=== PATIENT | female | born 1990 | race Two or more races ===

== ENCOUNTER 2024-12-25 12:49 | Observation (INO) | payer MEDICAID, SELFPAY ==
[2024-12-25 12:55] VITALS: BP 123/75; PULSE 90
[2024-12-25 13:11] VITALS: RESP 16; TEMP 36.9; O2SAT 100; BMI 32.6
[2024-12-25 13:19] LABS: ROM Kit Lot # 57809118; Swb Mxed in Solvent 1 min? Yes
[2024-12-25 13:20] LABS: ROM Swab Mixed By: HILEL
[2024-12-25 13:27] LABS: Rupture of Fetal Membranes Negative (Negative)
[2024-12-25 13:29] VITALS: BP 115/64; PULSE 90
[2024-12-25 14:05] VITALS: BP 99/65; PULSE 85
== END 2024-12-25 14:20 | disposition home or self-care (01) ==
PROVIDERS: Admitting Provider Obstetrics & Gynecology; PCP Family Medicine; Visit Provider Obstetrics & Gynecology
DX: Z34.83 Encounter for supervision of other normal pregnancy, third trimester (principal); Z3A.38 38 weeks gestation of pregnancy
CPT/HCPCS: 59025; 59899; 84112

== ENCOUNTER 2024-12-27 10:00 | Inpatient (IN) | payer MEDICAID, SELFPAY ==
[2024-12-27] VITALS (120 sets, daily range): BP systolic 117–148; BP diastolic 58–89; PULSE 65–114; RESP 18–98; TEMP 36.3–37.1; O2SAT 47–100; BMI 32.5
[2024-12-27 11:26] LABS: ROM Kit Lot # 57809118; ROM Swab Mixed By: YOUNB; Swb Mxed in Solvent 1 min? Yes
[2024-12-27 11:27] LABS: Rupture of Fetal Membranes Positive (Negative)
[2024-12-27 12:46] LABS: Basophils # (Auto) 0.1 Thou/mm3 (0.0-0.2); Basophils % (Auto) 1 % (0-2.5); Eosinophils # (Auto) 0.2 Thou/mm3 (0.0-0.5); Eosinophils % (Auto) 1 % (0-10); Hematocrit 36.3 % (36.0-46.0); Immature Granulocytes % (Auto) 1 % (0-0); Immature Granulocytes Auto 0.14 Thou/mm3 (0.00-0.00); Lymphocytes # (Auto) 3.3 Thou/mm3 (1.0-4.8); Lymphocytes % (Auto) 17 % (10-50); Mean Corpuscular HGB Conc 35.8 g/dl (31.0-37.0); Mean Corpuscular Hemoglobin 31.4 pg (25.0-35.0); Mean Corpuscular Volume 88 fL (80-100); Monocytes # (Auto) 1.2 Thou/mm3 (0.0-0.8); Monocytes % (Auto) 6 % (0-12); Neutrophils # (Auto) 14.2 Thou/mm3 (1.8-7.7); Neutrophils % (Auto) 75 % (37-80); Nucleated Red Blood Cell % 0 /100 WBC (0); Platelet Count 425 Thou/mm3 (140-440); RDW Standard Deviation 43.1 fL (36.4-46.3); Red Blood Count 4.14 Miln/mm3 (4.00-5.20)
[2024-12-27] MEDS: RINGERS LACTATED 1000 ML 1,000 ML 100 ML IV ×2 (13:30→15:59)
--- NOTE | 2024-12-27 13:30 | PD.LDHP ---
Documentation for date of: 12/27/24 OB Labor/Induct. HPI History of Present Illness : 6 Para: 5 Term pregnancies: 5 pregnancies: 0 Living children: 5 History of Abortions: Spontaneous and Elective: 0 History of Vaginal deliveries: 0 History of sections: No History of : No Date of last menstrual period: 03/26/24 LOREN: 12/31/24 (Per early dating and US note in record) Gestational age based on last menstrual period: 38 History of present illness: Onset of vaginal leakage 5 AM today History of Present Adequate Care: Yes Labs Labs: Negative: Hepatitis B, HIV, Chlamydia, Gonorrhea and Group Beta Strep Review of Systems Review of Systems Systems Reviewed: All systems reviewed, normal except as documented Constitutional Constitutional: Reports system reviewed and no additional complaints, except as documented Eyes Eyes: Reports system reviewed and no additional complaints, except as documented ENT Ears, Nose, Mouth, and Throat: Reports system reviewed and no additional complaints, except as documented Cardiovascular Cardiovascular: Reports system reviewed and no additional complaints, except as documented Respiratory Respiratory: Reports system reviewed and no additional complaints, except as documented Gastrointestinal Gastrointestinal: Reports system reviewed and no additional complaints, except as documented Genitourinary Genitourinary: Reports system reviewed and no additional complaints, except as documented Musculoskeletal Musculoskeletal: Reports system reviewed and no additional complaints, except as documented Neurologic Neurologic: Reports system reviewed and no additional complaints, except as documented Psychiatric Comments: 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 Past Medical History Surgical History SURGICAL: Negative Section Meds Home Medications and Allergies Home Medications ?Medication ?Instructions ?Recorded ?Confirmed ?Type vits no.130-ferrous fum 1 tab PO QDAY 12/25/24 12/27/24 History 27 mg iron-folic acid 800 mcg tablet ( Vitamin) Allergies Allergy/AdvReac Type Severity Reaction Status Date / Time No Known Allergies Allergy Verified 12/27/24 11:23 OB Exam Physical Exam Vital signs: Temp Pulse Resp BP Pulse Ox 98.6 F 85 18 117/77 99 12/27/24 10:08 12/27/24 13:17 12/27/24 10:08 12/27/24 13:17 12/27/24 11:43 Detailed Labor and Delivery Exam Dilation (cm): 3 Effacement (%): 60 Cervix position: posterior station: -1 Consistency: medium monitor decelerations: None jail variability: Average (6-10) Contraction intensity: Mild Routine Extremities Exam Comments: normal Routine Back/Spine/Pelvis Exam Comments: normolinear Routine Skin Exam Skin: Present intact OB Results Labs 12/27/24 12:02 Labs: Short CBC 12/27/24 Range/Units 12:02 WBC 19.0 H (3.6-11.0) Thou/mm3 Hgb 13.0 (12.0-16.0) g/dL Hct 36.3 (36.0-46.0) % Plt Count 425 (140-440) Thou/mm3 Impressions Impression: Term IUP i multigravid with advanced maternal age
[2024-12-27 13:56] LABS: Syphilis Nonreactive (Nonreactive)
[2024-12-27] MEDS: OXYTOCIN in NS 30 units 30 UNIT/500 ML BAG IV (16:03)
[2024-12-27 17:02] LABS: Amphetamine/Metham Scrn,Ur OB Negative (Negative); Benzoylecgonine Screen, Ur OB Negative (Negative); Opiate Screen,Urine OB Negative (Negative); THC Screen,Urine OB Positive (Negative)
[2024-12-27 17:03] LABS: THC U Confirm* See Sep Rpt
[2024-12-27] MEDS: fentaNYL CIT INJ 50 mCg/ML AMP 2ML IVP ×3 (17:17→19:56)
--- NOTE | 2024-12-27 20:49 | OBDSUM_ITS ---
Data (Martino) Data Hx Section: No : 6 Term: 5 : 0 : 0 Delivery Data (Martino) Labor Data Stimulated/Augmented: Yes Induction: No Method: Oxytocin ROM Date: 12/27/24 ROM Time: 05:00 Rupture Type: SROM Delivery Data Delivered by: [facility] Delivery Method Delivery: Vaginal Delivery Type: Spontaneous Presentation: Vertex Position: MARTHA Placenta Placenta Delivery: Spontaneous Placenta Cultures Obtained: No Placenta Sent for Examination: No Mcintyre Data (Martino) Mcintyre Data Gender: Female Weight Grams: 3190 weight (lbs): 3146.797 g Additional Comments Additional comments: 8/9
[2024-12-27] MEDS: OXYTOCIN in NS 20 units 20 UNIT/1,000 ML BAG 125 UNIT IV (21:10)
[2024-12-27] MEDS: IBUPROFEN TAB 400 MG TABLET 800 MG PO (22:54)
[2024-12-28 00:40] VITALS: BP 112/63; PULSE 73; RESP 18; TEMP 36.9; O2SAT 98
[2024-12-28 04:12] LABS: Basophils # (Auto) 0.1 Thou/mm3 (0.0-0.2); Basophils % (Auto) 0 % (0-2.5); Eosinophils # (Auto) 0.1 Thou/mm3 (0.0-0.5); Eosinophils % (Auto) 0 % (0-10); Hematocrit 29.2 % (36.0-46.0); Hemoglobin 10.3 g/dL (12.0-16.0); Immature Granulocytes % (Auto) 1 % (0-0); Immature Granulocytes Auto 0.16 Thou/mm3 (0.00-0.00); Lymphocytes # (Auto) 3.2 Thou/mm3 (1.0-4.8); Lymphocytes % (Auto) 15 % (10-50); Mean Corpuscular HGB Conc 35.3 g/dl (31.0-37.0); Mean Corpuscular Hemoglobin 31.5 pg (25.0-35.0); Mean Corpuscular Volume 89 fL (80-100); Monocytes # (Auto) 1.5 Thou/mm3 (0.0-0.8); Monocytes % (Auto) 7 % (0-12); Neutrophils # (Auto) 16.3 Thou/mm3 (1.8-7.7); Neutrophils % (Auto) 76 % (37-80); Nucleated Red Blood Cell % 0 /100 WBC (0); Platelet Count 367 Thou/mm3 (140-440); RDW Standard Deviation 44.4 fL (36.4-46.3); Red Blood Count 3.27 Miln/mm3 (4.00-5.20)
[2024-12-28 04:14] LABS: White Blood Count 21.4 Thou/mm3 (3.6-11.0)
[2024-12-28 05:00] VITALS: BP 98/56; PULSE 67; RESP 14; TEMP 36.8; O2SAT 99
[2024-12-28] MEDS: ACETAMINOPHEN 325 MG TABLET 650 MG PO ×2 (05:14→11:08)
[2024-12-28 07:46] VITALS: BP 115/71; PULSE 83; RESP 20; TEMP 36.6; O2SAT 98
[2024-12-28] MEDS: IBUPROFEN TAB 400 MG TABLET 800 MG PO ×2 (07:59→15:54)
[2024-12-28] MEDS: PRENATAL VITAMIN/FE FUM/FA TABLET 1 TAB PO (08:00)
--- NOTE | 2024-12-28 08:35 | ESPR_ITS ---
Subjective Subjective Interval history: Alert in NAD Exam Vital Signs Temp Pulse Resp BP Pulse Ox O2 Del Method 98.2 F 67 14 98/56 L 99 Room Air 12/28/24 05:00 12/28/24 05:00 12/28/24 05:00 12/28/24 05:00 12/28/24 05:00 12/28/24 05:00 Routine HEENT Exam Eye: Present EOMI and PERRL Routine Cardiovascular Exam Comments: RRR Routine Abdominal Exam Comments: Uterus firm at umbilicus Routine Extremities Exam Comments: trace pedal edema Routine Neurological Exam Comments: +2 sym biceps/quadraceps Objective Labs 12/28/24 02:53 Labs: Laboratory Results - last 24 hr 12/27/24 12/27/24 12/27/24 10:58 12:00 12:02 WBC 19.0 H RBC 4.14 Hgb 13.0 Hct 36.3 MCV 88 MCH 31.4 MCHC 35.8 RDW Std Deviation 43.1 Plt Count 425 Neut % (Auto) 75 Lymph % (Auto) 17 [place] % (Auto) 6 Eos % (Auto) 1 Baso % (Auto) 1 Neut # (Auto) 14.2 H Lymph # (Auto) 3.3 [place] # (Auto) 1.2 H Eos # (Auto) 0.2 Baso # (Auto) 0.1 Immature Gran # (Auto) 0.14 H Absolute Nucleated RBC 0.00 Immature Gran % 1 H Nucleated RBC % 0 Membrane Rupture Positive A Urine Opiates Screen Negative U Amphetamin/Meth Scrn Negative U Cocaine Metab Screen Negative U Marijuana (THC) Screen Positive A Syphilis Serology Nonreactive Blood Type O Positive Antibody Screen NEGATIVE Blood Bank Wristband ID Yes 12/28/24 02:53 WBC 21.4 H RBC 3.27 L Hgb 10.3 L D Hct 29.2 L MCV 89 MCH 31.5 MCHC 35.3 RDW Std Deviation 44.4 Plt Count 367 D Neut % (Auto) 76 Lymph % (Auto) 15 [place] % (Auto) 7 Eos % (Auto) 0 Baso % (Auto) 0 Neut # (Auto) 16.3 H Lymph # (Auto) 3.2 [place] # (Auto) 1.5 H Eos # (Auto) 0.1 Baso # (Auto) 0.1 Immature Gran # (Auto) 0.16 H Absolute Nucleated RBC 0.00 Immature Gran % 1 H Nucleated RBC % 0 Membrane Rupture Urine Opiates Screen U Amphetamin/Meth Scrn U Cocaine Metab Screen U Marijuana (THC) Screen Syphilis Serology Blood Type Antibody Screen Blood Bank Wristband ID Impressions Impression: PPD 1 Assessment & Plan Plan Comment Plan Comment: Observe and D/C in AM Time Spent With Patient Time: Total time spent is greater than 50% in coordination of care (as documented) at patient's floor/unit and/or counseling patient:
--- NOTE | 2024-12-28 10:31 | PC.SS ---
-CWS report submitted verbally to [facility]. Written report to be faxed to [phone]. Basis of report due to patient and toxicology report positive for THC. CWS informed SS that immediate response not warranted. SS left contact number in the event CWS determines any follow up prior to the patient's discharge.
[2024-12-28 11:30] VITALS: BP 101/63; PULSE 68; RESP 24; TEMP 36.7; O2SAT 100
[2024-12-28 15:52] VITALS: BP 95/58; PULSE 60; RESP 20; TEMP 36.6; O2SAT 96
[2024-12-28] MEDS: DIPHTH,PERTUSS(ACELL),TET VAC 0.5 ML SYR- ADULT IMi (15:55)
--- NOTE | 2024-12-28 16:07 | PC.NURSE ---
RN NOTICED NO IV ON PATIENT DURING 1500 VITAL SIGN CHECK. PATIENT TOLD RN HER IV FELL OUT.
--- NOTE | 2024-12-28 16:19 | PC.SS ---
SS conducted bedside contact with the patient to address nursing referral indicating patient was positive for thc during care. Current tox was positive. [place] tox report was also positive.? SS discussed self and role. SS asked patient for permission to speak in front of her guest. Patient agreeable and states it was hacksaw inspector. SS discussed with patient the basis of the referral. Patient confirmed she used thc to help with her anxiety. Patient states she smoked THC outside the home, out of the presence of the other children in the home.? SS staff did inform of CPS report. Patient resides at home with hacksaw inspector and her two other children ages 1 and 15 years old.? This is patient?s sixth child.? Patient had baby girl, Lukas Daniel, via natural . Patient received care with [facility], Monie Zafar at [facility]. Patient states she was consistent with care. Patient has history of CWS. No current case. ?Father of the baby is Vamshi Anglin.? Patient has access to a car seat.? FOB will provide transportation upon discharge. Patient is aligned with WIC, [employer] and TANF. ?SS provided resources including:? Warm line, Community lines, and [facility]. Nursing submitted a high risk referral.? SS will submit CWS referral. CWS worker to take referral:? [facility]. CWS filed and sent. Senior Windows Systems Engineer will be available to address any further concerns. ?SS updated bedside nurse.
[2024-12-28 21:33] VITALS: BP 99/65; PULSE 68; RESP 16; TEMP 36.3; O2SAT 97
[2024-12-29 04:05] VITALS: BP 99/63; PULSE 78; RESP 16; TEMP 36.9; O2SAT 99
[2024-12-29] MEDS: IBUPROFEN TAB 400 MG TABLET 800 MG PO (04:18)
[2024-12-29 08:00] VITALS: BP 115/72; PULSE 74; RESP 18; TEMP 36.8; O2SAT 97
[2024-12-29] MEDS: PRENATAL VITAMIN/FE FUM/FA TABLET 1 TAB PO (08:15)
--- NOTE | 2024-12-29 09:00 | PD.LDPPPRG ---
Subjective Subjective Interval history: Alert requesting D/c Exam Vital Signs Temp Pulse Resp BP Pulse Ox O2 Del Method 98.3 F 74 18 115/72 97 Room Air 12/29/24 08:00 12/29/24 08:00 12/29/24 08:00 12/29/24 08:00 12/29/24 08:00 12/29/24 08:00 Narrative Exam Doing well Routine HEENT Exam Head: Present normocephalic Eye: Present EOMI, PERRL and normal accommodation Routine Chest/Breast/Axilla Exam Comments: breST SOFT Routine Respiratory Exam Comments: CLear Routine Cardiovascular Exam Comments: rrr Routine Abdominal Exam Comments: soft non tender active bs Routine Neurological Exam Comments: reflexes +2 symmetrical Objective Labs 12/28/24 02:53 Impressions Impression: [place] pp, with pt requesting D/C Assessment & Plan Time Spent With Patient Time: Total time spent is greater than 50% in coordination of care (as documented) at patient's floor/unit and/or counseling patient:
== END 2024-12-29 09:30 | disposition home or self-care (01) | DRG 560 ==
LOC: S4SX 20:53 → S4NX 12-28 01:43
PROVIDERS: Admitting Provider Obstetrics & Gynecology; Visit Provider Obstetrics & Gynecology
DX: O80 Encounter for full-term uncomplicated delivery (principal); Z37.0 Single live birth; Z3A.39 39 weeks gestation of pregnancy
CPT/HCPCS: 36415; 59025; 59409; 80307; 84112; 85025; 86780; 86850; 86900; 86901; 90715; 94762; J2590; J3010; J7120; A9270

== ENCOUNTER 2025-08-06 12:55 | Emergency (ER) | payer MEDICAID, SELFPAY ==
[2025-08-06 12:55] VITALS: BMI 28.3
[2025-08-06 13:09] VITALS: BP 130/80; PULSE 109; RESP 18; TEMP 36.9; O2SAT 97
--- NOTE | 2025-08-06 13:20 | XR_ITS ---
Examination: Foot, right, 3 views Technique: AP, oblique, lateral views foot, 3 views Date and time of exam: August 06, 2025, 1343 hrs. Indications: Patient stepped on a sharp object today with laceration to the foot. Findings: No acute fracture. No dislocation No foreign body Impression: No opaque foreign body
[2025-08-06] MEDS: ONDANSETRON ODT 4 MG TABRAP PO (14:03)
[2025-08-06] MEDS: LIDOCAINE HCL 1% 20 ML VIAL 10 ML INFL (14:03)
[2025-08-06] MEDS: HYDROcodone/APAP 5/325 TABLET 1 TAB PO (14:04)
--- NOTE | 2025-08-06 15:18 | EDNOTE_ITS ---
ED Wound/Laceration-RME/HPI General Chief Complaint: Wound/Laceration Stated Complaint: STEPPED ON A SURGICAL SERVICES DIRECTOR'S BLADE Time Seen by Provider: 08/06/25 13:07 Arrival date/time: 08/06/25 12:55 This is a 35-year-old female that comes into the emergency room with a laceration to her right foot. 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 Patient denies any other trauma. Patient initially said she had not had a tetanus shot in the last 5 years but then stated that she just had a baby and they gave her that immunization. Related Data Home Medications ?Medication ?Instructions ?Recorded ?Confirmed vits no.130-ferrous fum 1 tab PO QDAY 5 12/27/24 27 mg iron-folic acid 800 mcg tablet ( Vitamin) Previous Rx's ?Medication ?Instructions ?Recorded ibuprofen 800 mg tablet 800 mg PO Q6H PRN pain #14 t abs 08/06/25 Allergies Allergy/AdvReac Type Severity Reaction Status Date / Time No Known Allergies Allergy Verified 08/06/25 12:58 Review of Systems Review of Systems Systems Reviewed: All systems reviewed, normal except as documented Past Medical History Surgical History SURGICAL: Negative Section ED Exam Narrative Physical exam: VITAL SIGNS: Reviewed. GENERAL APPEARANCE: Alert and interactive, follows commands, no acute distress HEAD AND FACE: Non-traumatic. ENT: PERRL, conjuctiva pink and clear, eyelid no trauma, Mucous membrane moist. NECK: Supple, nontender, no nuchal rigidity. CHEST: No tenderness, no crepitus, no paradoxical movement, no retractions. LUNGS: breathing even and unlabored HEART: Regular rate, cap refill less than 2 seconds ABDOMEN: Soft, nondistended, no guarding, nontender, no rebound, no masses, NEUROLOGICAL: Gross motor function intact sensory function intact, Appropriate for age. MUSCULOSKELETAL: low back nontender, full range of motion EXTREMITIES: No redness no swelling no skin breakdown on bilateral foot and leg. Distal neurovascular status intact bilateral foot SKIN: Color pink, dry, laceration approx 3m in length to the bottom of right foot Course Quality Measures none Orders Category Date Time Status Cleanse Wound NEEDED Care 08/06/25 13:20 Completed XR foot comp RT min 3V Stat Exams 08/06/25 13:20 Completed Doxycycline [Vibramycin] Med 08/06/25 15:17 Discontinued 100 mg PO X1 ONE HYDROcodone*/APAP 5/325 [[place] 5/325] Med 08/06/25 13:20 Discontinued 1 tab PO X1 ONE Ibuprofen Tab [Motrin Tab] Med 08/06/25 15:17 Discontinued 800 mg PO X1 ONE Lidocaine 1% 20 ml [Xylocaine 1% 20 ML] Med 08/06/25 13:20 Discontinued 10 ml INFL X1 ONE Ondansetron Odt [Zofran Odt] Med 08/06/25 13:20 Discontinued 4 mg PO X1 ONE TET,DIP/PERT AC (Adult)-Tdap [Boostrix Adult (Tdap) Med 08/06/25 13:20 Discontinued Vacc] 0.5 ml IMI .ONCE ONE Vital Signs Vital signs: Vital Signs Temperature 98.5 F 08/06/25 13:09 Pulse Rate 109 H 08/06/25 13:09 Respiratory Rate 18 08/06/25 13:09 Blood Pressure 130/80 08/06/25 13:09 Pulse Oximetry (%) 97 08/06/25 13:09 Oxygen Delivery Method Room Air 08/06/25 13:09 Wound / Laceration MDM Narrative MDM Narrative:: I was attempting to anesthetize patient's right foot. Patient screaming in pain. I had staff help me hold patient foot down to help inject lidocaine in order to suture patient's foot. Patient was crying and stated she does not want her foot sutured at the injections were hurting her too much. I explained to patient that her wound is deep and needs to be sutured. I also explained to patient that wound is likely to get infected when is not closed. Patient verbalizes understanding. Patient just wants dressing over foot and does not want to proceed with sutures at this point anymore. Will send patient home with doxycycline and ibuprofen. Patient told to follow-up with primary provider in 1 to 2 days. Come back to the emergency room symptoms change or worsen. Of note patient's foot is very rough and thickened/calcused. Per patient boyfriend they walk around barefoot a lot. I explained to patient and to patient significant other at the bedside that she cannot be doing this that she needs to allow her foot to heal. Patient verbalized understanding. Dragon dictation: Although this document has been carefully reviewed, there may still be some phonetic and other typographical errors. These errors are purely grammatical due to imperfections in the software program and should not be construed in any way to compromise the substance of the patient's medical care during this visit. foot x ray: Findings: No acute fracture. No dislocation No foreign body Impression: No opaque foreign body Patient data External records reviewed:: [facility] previous records Clinical information provided by:: patient Social determinants that could affect healthcare access:: none (homeless) Patient has the following chronic illnesses:: see hpi How is presenting disease/condition affected by chronic disease/condition?: no chronic disease Evaluation data The following diagnostics were reviewed and interpreted by me:: radiology exam(s) Lab and/or radiology exams considered but not ordered:: see note Interpretation Summary: see note Medications / Prescriptions Medications or Prescriptions considered but not ordered:: none Medication administrations:: Medication Administration History Discontinued Medications Hydrocodone Bitart/Acetaminophen (Hydrocodone/Apap 5/325 Tablet) 1 tab PO X1 ONE Stop: 08/06/25 13:21 Last Admin: 08/06/25 14:04 Dose: 1 tab Documented By: Diphtheria/Tetanus/Acell Pertussis (Diphth,Pertuss(Acell),Tet Vac 0.5 Ml Syr- Adult) 0.5 ml IMi .ONCE ONE Stop: 08/06/25 13:21 Last Admin: 08/06/25 14:04 Dose: Not Given Documented By: Non-Admin Reason: Patient Refused Comments: refused, has tdap in april of 2023 Doxycycline Hyclate (Doxycycline 100 Mg Tablet) 100 mg PO X1 ONE Stop: 08/06/25 15:18 Last Admin: 08/06/25 15:34 Dose: 100 mg Documented By: Ibuprofen (Ibuprofen Tab 400 Mg Tablet) 800 mg PO X1 ONE Stop: 08/06/25 15:18 Last Admin: 08/06/25 15:34 Dose: 800 mg Documented By: Lidocaine HCl (Lidocaine Hcl 1% 20 Ml Vial) 10 ml INFL X1 ONE Stop: 08/06/25 13:21 Last Admin: 08/06/25 14:03 Dose: 10 ml Documented By: Ondansetron HCl (Ondansetron Odt 4 Mg Tabrap) 4 mg PO X1 ONE; Protocol Stop: 08/06/25 13:21 Last Admin: 08/06/25 14:03 Dose: 4 mg Documented By: see note Consultations Consultation(s) initiated? (list below): No Diagnosis Wound Differential Diagnosis: laceration, abrasion and avulsion of skin Most likely diagnosis given after review of the tests above:: laceration Admission Indicated Admission indicated?: not indicated Admission Request Was there a request for admission?: No Disposition Plan Disposition Plan: Discharge Discharge Attestation Discharge Attestation: The patient and all family members were given an opportunity to ask questions and understood the discharge instructions. Discharge instructions specifically effects, indications for sooner follow up or return to the emergency department, and the expected course of current diagnosis. Patient condition: Stable Discharge Plan Plan Patient Disposition: HOME (Self Care) Patient condition on transfer: Stable Prescriptions/Referrals Prescriptions/Med Rec: New ibuprofen 800 mg tablet 800 mg PO Q6H PRN (Reason: pain) Qty: 14 0RF No Action Vitamin 27 mg iron- 800 mcg tablet 1 tab PO QDAY Referrals: Tyrell Overton MD [Primary Care Provider, Family Practice] - In 1 week Problem List Clinical Impression: Laceration, Acute foot pain Patient/Caregiver Discharge Instructions Discharge Activity: activity as tolerated Education Materials: ED Wound Care Additional Instructions: Follow up with primary provider in 1-2 days. Come back to ED if symptoms change or worsen. Print Language: Monegasque Stand Alone Forms: Mirna Award Info., Patient Portal Info Letter BOSSMAN/LUCIANO Supervising Physician BOSSMAN/LUCIANO Supervising Physician: stephania
[2025-08-06] MEDS: DOXYCYCLINE 100 MG TABLET PO (15:34)
[2025-08-06] MEDS: IBUPROFEN TAB 400 MG TABLET 800 MG PO (15:34)
--- NOTE | 2025-08-06 16:05 | PC.NURSE ---
Patient unable to tolerate lidocaine injections for sutures, patient refused sutures. Patient educated on risks of refusal. Patient understood and verbalized understanding of high risk of infection. Patient observed and verbalized wound care while this hand sign writer performed care. Patient given walking boot and crutches for protection of wound. Patient given extra wound care supplies and encouraged to return at any time for wound check.
== END 2025-08-06 16:35 | disposition home or self-care (01) ==
PROVIDERS: Emergency Provider Emergency Medicine; PCP Family Medicine
DX: S91.311A Laceration without foreign body, right foot, initial encounter (principal); W22.8XXA Striking against or struck by other objects, initial encounter
CPT/HCPCS: 73630; 99284; J3490; Q0162; A9270